=== PATIENT | female | born 1990 | race Two or more races ===

== ENCOUNTER 2016-12-01 08:59 | Emergency (ER) | payer OTHER ==
[2016-12-01 09:15] VITALS: BMI 32.7
--- NOTE | 2016-12-01 09:19 | PDOC ---
History of Present Illness - History of Present Illness Initial Comments: 12/01/16 10:16 Patient is a 26 year old female (8 weeks; ) with significant medical hx of asthma, hypothyroidism, and pre-diabetes who is presenting to the ED with nausea, left sided flank pain, and vomiting since yesterday. The patient is currently being treated for UTI (on Macrobid) that she was diagnosed with last week; she reports associated dysuria and some blood in her urine. Today the patient complains of intermittent left sided flank and LLQ pain that is accompanied with nausea and vomiting that started yesterday. The patient also reports some diarrhea yesterday (now resolved) and headache. The patient reports that she's experienced this pain prior to her , but usually was mild and resolved on its own but states that it was never this bad. Denies fevers, chills, cough, chest pain, or shortness of breath. CLAMPER: Tangela Moore MD <Kristina Owusu - Last Filed: 12/01/16 15:19> <Marshall Franklin - Last Filed: 12/01/16 20:29> - General Chief Complaint: Pain, Acute Stated Complaint: VOMIT (8 WKS ) LT SIDE PAIN Time Seen by Provider: 12/01/16 09:17 Past History <Kristina Owusu - Last Filed: 12/01/16 15:19> - Past Medical History Asthma: Yes Diabetes: (PRE-DIABETIC) - Psycho/Social/Smoking Cessation Hx Suicidal Ideation: No Smoking History: Never smoked Number of Cigarettes Smoked Daily: 0 Hx Alcohol Use: No Drug/Substance Use Hx: No <Marshall Franklin - Last Filed: 12/01/16 20:29> - Past Medical History Allergies/Adverse Reactions: Allergies Allergy/AdvReac Type Severity Reaction Status Date / Time amoxicillin Allergy Verified 12/01/16 09:10 Home Medications: Ambulatory Orders Metoclopramide HCl [Reglan -] 10 mg PO BID PRN 12/01/16 Nitrofurantoin Macrocrystal [Nitrofurantoin] 100 mg PO BID 12/01/16 Review of Systems - Review of Systems Comments:: 12/01/16 10:18 CONSTITUTIONAL: No reported: Fever, Chills, Diaphoresis, Generalized Weakness, Malaise, Loss of Appetite HEENT: No reported: Rhinorrhea, Nasal Congestion, Throat Pain, Throat Swelling, Difficulty Swallowing, Mouth Swelling, Ear Pain, Eye Pain, Visual Changes CARDIOVASCULAR: No reported: Chest Pain, Syncope, Palpitations, Irregular Heart Rate, Lightheadedness, Peripheral Edema RESPIRATORY: No reported: Cough, Shortness of Breath, SOB with Exertion, Orthopnea, Wheezing , Stridor, Hemoptysis GASTROINTESTINAL: Reported: LLQ Pain, Nausea, Vomiting, Diarrhea No reported: Abdominal Distension, Constipation, Melena, Hematochezia GENITOURINARY: Reported: Left Flank Pain, Dysuria, Hematuria No reported: Frequency, Urgency, Hesitancy, Genital Pain MUSCULOSKELETAL: No reported: Myalgia, Arthralgia, Joint Swelling, Back pain, Neck Pain SKIN: No reported: Rash, Itching, Pallor HEMEATOLOGIC/IMMUNOLOGIC: No reported: Easy Bleeding, Easy Bruising, Lymphadenopathy, Frequent infections ENDOCRINE: No reported: Unexplained Weight Gain, Unexplained Weight Loss, Heat Intolerance , Cold Intolerance NEUROLOGIC: Reported: Headache No reported: Focal Weakness, Paresthesias, Vertigo, Lightheadedness, Unsteady Gait, Seizure, Mental Status Changes, Incontinence PSYCHIATRIC: No reported: Anxiety, Depression <Umer,Kristina - Last Filed: 12/01/16 15:19> *Physical Exam - Vital Signs Last Vital Signs Temp Pulse Resp BP Pulse Ox 98.3 F 92 H 19 123/71 100 12/01/16 09:10 12/01/16 09:10 12/01/16 09:10 12/01/16 09:10 12/01/16 09:10 - Physical Exam Comments: 12/01/16 10:19 GENERAL: The patient is awake, alert, and fully oriented, Nontoxic - in no acute distress. HEAD: Normocephalic, atraumatic. EYES: extraocular movements intact, sclera anicteric, conjunctiva clear. ENT: Normal voice, Moist mucous membranes. NECK: Normal range of motion, supple LUNGS: Breath sounds equal, clear to auscultation bilaterally. No wheezes, no rhonchi, no rales. HEART: Regular rate and rhythm, normal S1 and S2 without murmur, rub or gallop. ABDOMEN: Soft, non tender abdomen normoactive bowel sounds. No guarding, no rebound. No CVA tenderness, EXTREMITIES: Normal range of motion, no edema. No clubbing or cyanosis. No cords, erythema, or tenderness. NEUROLOGICAL: No facial assymetry, Normal speech, PSYCH: Normal mood, normal affect. SKIN: Warm, Dry, normal turgor <Kristina Owusu - Last Filed: 12/01/16 15:19> - Vital Signs Last Vital Signs Temp Pulse Resp BP Pulse Ox 98.3 F 92 H 19 123/71 100 12/01/16 09:10 12/01/16 09:10 12/01/16 09:10 12/01/16 09:10 12/01/16 09:10 <Marshall Franklin - Last Filed: 12/01/16 20:29> ED Treatment Course - LABORATORY CBC & Chemistry Diagram: 12/01/16 09:44 12/01/16 09:44 - ADDITIONAL ORDERS Additional order review: Laboratory Results 12/01/16 09:44 Urine Color Ltyellow Urine Appearance Clear Urine pH 5.0 Ur Specific [place] 1.017 Urine Protein Negative Urine Glucose (UA) Negative Urine Ketones Negative Urine Blood 2+ H Urine Nitrite Negative Urine Bilirubin Negative Urine Urobilinogen Negative Ur Leukocyte Esterase 2+ H 12/01/16 09:44 RBC 4.53 MCV 83.9 MCHC 33.2 RDW 13.8 MPV 9.1 Neutrophils % 73.7 D Lymphocytes % 17.8 D Monocytes % 7.1 Eosinophils % 1.0 Basophils % 0.4 - RADIOLOGY Radiograph Interpretation: 12/01/16 15:19 Renal US Pelvic/Bladder US Limited US Impression: Single live intrauterine with estimated gestational age of 8 weeks 5 days. Impression: Unremarkable examination. Both kidneys appear unremarkable without evidence of stones or hydronephrosis. Reported By: Jeremy Person MD <Kristina Owusu - Last Filed: 12/01/16 15:19> - LABORATORY CBC & Chemistry Diagram: 12/01/16 09:44 12/01/16 09:44 <Marshall Franklin - Last Filed: 12/01/16 20:29> Medical Decision Making - Medical Decision Making 12/01/16 09:36 26y F , hypothyroid at approximately 8 weeks gestation presents with intermittent L flank pain x 2 days associated n/v, no f/c, vaginal bleeding, pt was treated with macrobid for a UTI since her doctor found blood in her urine last week. On exam the pt is well appearing, in no distress, mild L flank pain. ?possible kidney stones will ck ua, renal US to r/o hydro, pelvic US to r/o ectopic due to L sided pain 12/01/16 15:00 pt currently not in pain labs reviewed us negative for hydro +iup with nromal fhr cannot definitely r/o or r/in stones, but no signs of obstruction will dc the pt with pmd fu tylenol for pain return precautions were discussed I discussed the physical exam findings, ancillary test results and final diagnoses with the patient. I answered all of the patient's questions. The patient was satisfied with the care received and felt comfortable with the discharge plan and treatment plan. The patient will call their primary care physician within 24 hours to arrange follow-up and will return to the Emergency Department with any new, persistent or worsening symptoms. <Marshall Franklin - Last Filed: 12/01/16 20:29> *DC/Admit/Observation/Transfer - Attestations Scribe Attestion: 12/01/16 10:20 Documentation prepared by Kristina Owusu, acting as medical management specialist for Marshall Franklin MD. <Kristina Owusu - Last Filed: 12/01/16 15:19> - Discharge Dispostion Admit: No <Marshall Franklin - Last Filed: 12/01/16 20:29> Diagnosis at time of Disposition: Flank pain Qualifiers: Weeks of gestation: less than 8 weeks Qualified Code(s): Z3A.01 - Less than 8 weeks gestation of - Discharge Dispostion Disposition: HOME Condition at time of disposition: Improved - Referrals Referrals: Davonte Trujillo MD [Primary Care Provider] - - Patient Instructions Printed Discharge Instructions: DI for -- Discomforts and Remedies, DI for Flank Pain Additional Instructions: Return to the emergency department immediately with ANY new, persistent or worsening symptoms. 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 Results were discussed with you. Please make sure your doctor reviews the results of your emergency evaluation. Print Language: SETSWANA - Post Discharge Activity Work/School Note: Back to Work
[2016-12-01] MEDS ORDERED: METOCLOPRAMIDE HCL INJECTION 10 MG/2 ML VIAL IVPUSH ONE (09:20)
[2016-12-01] MEDS ORDERED: SODIUM CHLORIDE 1,000 ML IV ONE (09:20)
[2016-12-01] MEDS ORDERED: PYRIDOXINE HCL (B-6) 100 MG TABLET PO ONE (09:25)
[2016-12-01 09:55] LABS: URINE APPEARANCE CLEAR; URINE BILIRUBIN NEGATIVE (NEGATIVE); URINE COLOR LTYELLOW; URINE GLUCOSE (UA) NEGATIVE (NEGATIVE); URINE KETONE NEGATIVE (NEGATIVE); URINE NITRITE NEGATIVE (NEGATIVE); URINE PROTEIN NEGATIVE (NEGATIVE); URINE UROBILINOGEN NEGATIVE E.U./dl (0.2-1.0)
[2016-12-01 09:56] LABS: URINE BLOOD 2+ (NEGATIVE); URINE LEUK ESTERASE 2+ (NEGATIVE)
[2016-12-01 10:01] LABS: BASOPHIL 0.4 % (0-2.0); MCH 27.9 pg (25.7-33.7); MCHC 33.2 g/dl (32.0-36.0); MEAN CELL VOLUME 83.9 fl (80-96); MEAN PLT VOLUME 9.1 fl (7.5-11.1); NEUTROPHILS 73.7 % (42.8-82.8); PLATELET COUNT 232 K/MM3 (134-434); RDW 13.8 % (11.6-15.6); WHITE BLOOD COUNT 7.9 K/mm3 (4.0-10.0)
[2016-12-01 10:54] LABS: ALBUMIN 3.3 g/dl (3.4-5.0); ALK PHOS 67 U/L (45-117); ANION GAP 11 (8-16); BILIRUBIN,TOTAL 0.2 mg/dL (0.2-1.0); CALCIUM 8.5 mg/dL (8.5-10.1); CO2 23 mmol/L (21-32); CREATININE 0.4 mg/dL (0.55-1.02); GLUCOSE,RANDOM 78 mg/dL (74-106); SGOT/AST 18 U/L (15-37); SGPT/ALT 21 U/L (12-78); TOT PROT 6.8 g/dl (6.4-8.2)
[2016-12-01 11:15] LABS: URINE MUCUS RARE; URINE RBC 6 /hpf (0-3); URINE WBC 4 /hpf (3-5)
[2016-12-01 15:27] VITALS: BP 117/82; PULSE 73; TEMP 98.6
== END 2016-12-01 15:27 | disposition home or self-care (01) ==
LOC: JER 08:59
PROC: 3E0337Z Introduction of Electrolytic and Water Balance Substance into Peripheral Vein, Percutaneous Approach (ICD-10-PCS; principal; 2016-12-01)
DX: O26.891 Other specified pregnancy related conditions, first trimester (principal); R10.32 Left lower quadrant pain; O99.281 Endocrine, nutritional and metabolic diseases complicating pregnancy, first trimester; E03.8 Other specified hypothyroidism; O24.911 Unspecified diabetes mellitus in pregnancy, first trimester; J45.909 Unspecified asthma, uncomplicated; Z3A.08 8 weeks gestation of pregnancy
CPT/HCPCS: 36415; 76775-TC; 76815-TC; 76856-TC; 80053; 81003; 81015; 84702; 85025; 96360; 99283-25

== ENCOUNTER 2016-12-28 08:36 | Emergency (ER) | payer OTHER ==
[2016-12-28 08:50] VITALS: TEMP 98.4; BMI 32.9
[2016-12-28] MEDS ORDERED: RANITIDINE HCL 150 MG TABLET (FP) PO ONE (09:25)
[2016-12-28] MEDS ORDERED: METOCLOPRAMIDE HCL 10 MG TABLET (FP) PO ONE ×2 (09:25→09:35)
[2016-12-28] MEDS ORDERED: RANITIDINE HCL 150 MG TABLET (FP) ONE (09:35)
[2016-12-28] MEDS ORDERED: SODIUM CHLORIDE 1,000 ML IV STA (09:41)
--- NOTE | 2016-12-28 09:52 | PDOC ---
History of Present Illness - General Chief Complaint: Nausea/Vomiting Stated Complaint: N/V,12 WKS Time Seen by Provider: 12/28/16 09:01 History Source: Patient Exam Limitations: No Limitations - History of Present Illness Initial Comments: 26 yo F 12 weeks presented to the ED with n/v x 2 days. She vomited 3 times, food content, non-bilious. Other symptoms include dizziness, headache, sinus fullness, cough, dark urine, suprapubic pain. 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 She was seen again in November for n/v and given reglan but did not take it this time when she felt nauseated. Denies fever, chills, chest pain, sob, bloody discharge per vagina. Past History - Past Medical History Allergies/Adverse Reactions: Allergies Allergy/AdvReac Type Severity Reaction Status Date / Time amoxicillin Allergy Verified 12/28/16 08:47 Home Medications: Ambulatory Orders Metoclopramide HCl [Reglan] 10 mg PO Q8H #21 tablet 12/28/16 Nitrofurantoin Monohyd/M-Cryst [Macrobid -] 100 mg PO BID #14 capsule 12/28/16 Asthma: Yes Diabetes: (PRE-DIABETIC) - Psycho/Social/Smoking Cessation Hx Suicidal Ideation: No Smoking History: Never smoked Number of Cigarettes Smoked Daily: 0 Hx Alcohol Use: No Drug/Substance Use Hx: No Review of Systems - Review of Systems Able to Perform ROS?: Yes Is the patient limited Yoruba proficient: Yes Constitutional: No: Chills HEENTM: Yes: Ear Pain, Nose Congestion. No: Throat Swelling, Difficulty Swallowing Respiratory: Yes: Cough. No: Shortness of Breath ABD/GI: Yes: Nausea, Vomiting, Abdominal cramping (suprapubic) : Yes: Dysuria *Physical Exam - Vital Signs Last Vital Signs Temp Pulse Resp BP Pulse Ox 98.4 F 89 19 98/65 98 12/28/16 08:47 12/28/16 08:47 12/28/16 08:47 12/28/16 08:47 12/28/16 08:47 - Physical Exam General Appearance: No: Apparent Distress HEENT: negative: Photophobia, Tonsillar Exudate, Tonsillar Erythema, Rhinorrhea , Sinus Tenderness Neck: positive: Other (lymph node tenderness behind ears) Cardiovascular: positive: Regular Rhythm, Regular Rate, S1, S2. negative: Murmur Gastrointestinal/Abdominal: positive: Normal Bowel Sounds, Soft, Tenderness ( suprapubic). negative: Distended, Guarding, Rebound Musculoskeletal: negative: CVA Tenderness ED Treatment Course - LABORATORY CBC & Chemistry Diagram: 12/28/16 09:50 12/28/16 09:50 - RADIOLOGY Radiology Studies Ordered: Category Date Time Status <14WKS US [US] Stat Ultrasound 12/28/16 09:33 Ordered Medical Decision Making - Medical Decision Making 12/28/16 09:53 Will obtain UA, UC, lab works, and U/S on lower abd. *DC/Admit/Observation/Transfer Diagnosis at time of Disposition: Qualifiers: Weeks of gestation: 13 weeks Qualified Code(s): Z3A.13 - 13 weeks gestation of UTI (urinary tract infection) Qualifiers: Urinary tract infection type: site unspecified Hematuria presence: with hematuria Qualified Code(s): N39.0 - Urinary tract infection, site not specified ; R31.9 - Hematuria, unspecified Nausea & vomiting Qualifiers: Vomiting type: unspecified Vomiting Intractability: unspecified Qualified Code( s): R11.2 - Nausea with vomiting, unspecified - Discharge Dispostion Disposition: HOME Condition at time of disposition: Stable Admit: No - Prescriptions Prescriptions: Nitrofurantoin Monohyd/M-Cryst [Macrobid -] 100 mg PO BID #14 capsule Metoclopramide HCl [Reglan] 10 mg PO Q8H #21 tablet - Patient Instructions Printed Discharge Instructions: DI for Urinary Tract Infection (UTI), Managing Symptoms of Additional Instructions: Please follow up with your [employer] doctor as soon as possible and bring all your discharge paperwork to the office. Please take macrobid 100mg twice a day for 7 days for your urinary tract infection. Please take reglan 10mg every 8 hours as needed for nausea and vomiting. Please return to the emergency department or your primary care doctor for worsening or continued symptoms. Print Language: CYMRO
--- NOTE | 2016-12-28 09:52 | PDOC ---
Attending Attestation - Resident Resident Name: AlmSantosh - ED Attending Attestation I have performed the following: I have examined & evaluated the patient, The case was reviewed & discussed with the resident, I agree w/resident's findings & plan, Exceptions are as noted - HPI HPI: 12/28/16 09:47 26 year old female with pmh of migraines, asthma p/w nausea and vomiting. Pt is ~12 wks p/w nausea and vomiting x 2 day. Also reports having dysuria and suprapubic discomfort but no vaginal bleeding. no flank pain. No fevers, chills. States she has been nauseous in the past with her with she had taken reglan for. Pt reports that the nausea and vomiting is causing her migraine to flare up. She feels generally weak and tired with the vomiting. - Physicial Exam PE: 12/28/16 09:48 GENERAL: Awake, alert, and fully oriented, in no acute distress. HEAD: No signs of trauma EYES: PERRLA, EOMI, sclera anicteric, conjunctiva clear ENT: Auricles normal inspection, hearing grossly normal, nares patent, oropharynx clear without exudates. NECK: Normal ROM, supple, no lymphadenopathy, JVD, or masses LUNGS: Breath sounds equal, clear to auscultation bilaterally. No wheezes, and no crackles HEART: Regular rate and rhythm, normal S1 and S2, no murmurs, rubs or gallops ABDOMEN: +suprapubic discomfort elicited on physical exam. Soft, normoactive bowel sounds. No guarding, no rebound. No masses EXTREMITIES: Normal range of motion, no edema. No clubbing or cyanosis. No cords, erythema, or tenderness NEUROLOGICAL: Cranial nerves II through XII grossly intact. Normal speech, normal gait SKIN: Warm, Dry, normal turgor, no rashes or lesions noted. - Medical Decision Making 12/28/16 09:52 Likely hyperemesis gravidarium. Will need to r/o cystitis. Given lower abd discomfort, will also obtain a pelvic ultrasounds. Labs, IVF, symptom control and reassess. 12/28/16 11:36 Ultrasound reviewed: single live IUP with gestational age of 13 wks and 2 days. Simple right ovarian cyst. CBC, BMP 12/28/16 09:50 12/28/16 09:50 CMP Sodium 137 mmol/L (136-145) 12/28/16 09:50 Potassium 3.8 mmol/L (3.5-5.1) 12/28/16 09:50 Chloride 103 mmol/L (98-107) 12/28/16 09:50 Carbon Dioxide 25 mmol/L (21-32) 12/28/16 09:50 Anion Gap 9 (8-16) 12/28/16 09:50 BUN 8 mg/dL (7-18) 12/28/16 09:50 Creatinine 0.5 mg/dL (0.55-1.02) L D 12/28/16 09:50 Creat Clearance w eGFR > 60 (>60) 12/28/16 09:50 Random Glucose 85 mg/dL (74-106) 12/28/16 09:50 Calcium 9.0 mg/dL (8.5-10.1) 12/28/16 09:50 Total Bilirubin 0.3 mg/dL (0.2-1.0) D 12/28/16 09:50 AST 14 U/L (15-37) L D 12/28/16 09:50 ALT 20 U/L (12-78) 12/28/16 09:50 Alkaline Phosphatase 73 U/L (45-117) 12/28/16 09:50 Total Protein 7.4 g/dl (6.4-8.2) 12/28/16 09:50 Albumin 3.5 g/dl (3.4-5.0) 12/28/16 09:50 Urine Test Results Urine Color Yellow 12/28/16 09:28 Urine Appearance Clear 12/28/16 09:28 Urine pH 5.0 (5.0-8.0) 12/28/16 09:28 Ur Specific [place] 1.026 (1.001-1.035) 12/28/16 09:28 Urine Protein Negative (NEGATIVE) 12/28/16 09:28 Urine Glucose (UA) Negative (NEGATIVE) 12/28/16 09:28 Urine Ketones Negative (NEGATIVE) 12/28/16 09:28 Urine Blood 2+ (NEGATIVE) H 12/28/16 09:28 Urine Nitrite Negative (NEGATIVE) 12/28/16 09:28 Urine Bilirubin Negative (NEGATIVE) 12/28/16 09:28 Ur Leukocyte Esterase 1+ (NEGATIVE) H 12/28/16 09:28 Urine RBC 8 /hpf (0-3) 12/28/16 09:28 Urine WBC 4 /hpf (3-5) 12/28/16 09:28 Ur Epithelial Cells Rare /hpf (FEW) 12/28/16 09:28 Urine Bacteria Rare /hpf (NONE SEEN) 12/28/16 09:28 Urine Mucus Many 12/28/16 09:28 The ultrasound is reassuring. Given these circumstances with the UA, will treat as cystitis. Will give macrobid. Discharge diagnosis: hyperemesis gravidarum and cystitis.
[2016-12-28 09:59] LABS: BASOPHIL 0.6 % (0-2.0); EOSINOPHIL 0.9 % (0-4.5); MCH 27.3 pg (25.7-33.7); MCHC 32.5 g/dl (32.0-36.0); MEAN PLT VOLUME 9.4 fl (7.5-11.1); NEUTROPHILS 70.7 % (42.8-82.8); PLATELET COUNT 201 K/MM3 (134-434); RDW 14.2 % (11.6-15.6); WHITE BLOOD COUNT 8.2 K/mm3 (4.0-10.0)
[2016-12-28 10:12] LABS: URINE APPEARANCE CLEAR; URINE BILIRUBIN NEGATIVE (NEGATIVE); URINE COLOR YELLOW; URINE GLUCOSE (UA) NEGATIVE (NEGATIVE); URINE KETONE NEGATIVE (NEGATIVE); URINE NITRITE NEGATIVE (NEGATIVE); URINE PROTEIN NEGATIVE (NEGATIVE); URINE UROBILINOGEN NEGATIVE E.U./dl (0.2-1.0)
[2016-12-28 10:16] LABS: URINE BLOOD 2+ (NEGATIVE)
[2016-12-28 10:17] LABS: URINE LEUK ESTERASE 1+ (NEGATIVE)
[2016-12-28 10:27] LABS: ALBUMIN 3.5 g/dl (3.4-5.0); ALK PHOS 73 U/L (45-117); ANION GAP 9 (8-16); BILIRUBIN,TOTAL 0.3 mg/dL (0.2-1.0); CO2 25 mmol/L (21-32); CREATININE 0.5 mg/dL (0.55-1.02); GLUCOSE,RANDOM 85 mg/dL (74-106); SGOT/AST 14 U/L (15-37); SGPT/ALT 20 U/L (12-78); TOT PROT 7.4 g/dl (6.4-8.2)
[2016-12-28 10:56] LABS: URINE BACTERIA RARE /hpf (NONE SEEN); URINE MUCUS MANY; URINE RBC 8 /hpf (0-3); URINE WBC 4 /hpf (3-5)
[2016-12-28] MEDS ORDERED: NITROFURANTOIN MACROCRYSTAL 50 MG CAPSULE (FP) PO SCH (11:45)
[2016-12-28] MEDS ORDERED: NITROFURANTOIN MACROCRYSTAL 50 MG CAPSULE (FP) ONE (11:52)
[2016-12-28 12:05] VITALS: BP 102/60; PULSE 84
== END 2016-12-28 12:05 | disposition home or self-care (01) ==
LOC: JER 08:36
PROC: 3E0337Z Introduction of Electrolytic and Water Balance Substance into Peripheral Vein, Percutaneous Approach (ICD-10-PCS; principal; 2016-12-28)
DX: O21.0 Mild hyperemesis gravidarum (principal); O23.11 Infections of bladder in pregnancy, first trimester; N30.90 Cystitis, unspecified without hematuria; O34.81 Maternal care for other abnormalities of pelvic organs, first trimester; N83.201 Unspecified ovarian cyst, right side; Z3A.13 13 weeks gestation of pregnancy
CPT/HCPCS: 36415; 76801-TC; 80053; 81003; 81015; 85025; 87086; 96360; 99283-25

== ENCOUNTER 2017-01-13 21:34 | Emergency (ER) | payer OTHER ==
[2017-01-13 22:49] VITALS: BP 116/56; PULSE 106; TEMP 98.1; BMI 32.1
[2017-01-14] MEDS ORDERED: AZITHROMYCIN 250 MG TABLET (FP) PO STA (00:02)
--- NOTE | 2017-01-14 00:03 | PDOC ---
History of Present Illness - General History Source: Patient <Nik Santos - Last Filed: 01/14/17 00:04> - General History Source: Patient Exam Limitations: No Limitations - History of Present Illness Initial Comments: 01/14/17 00:08 The patient is a 26 year old female (15 weeks ) with significant past medical history of asthma on albuterol who presents to the ED for 3 days of cold-like symptoms. Patient reports she developed pain to her throat and upper chest region that is exacerbated with deep inspiration and alleviated with drinking fluids. She reports a dry cough and when she coughs, she endorses chest pain. Patient also reports 1 day of fever (tmax 103), rhinorrhea, and nasal congestion. Denies chest pain or SOB. Took her albuterol multiple times with no relief. She recently finished her course of antibiotics on 3 days ago, which she was prescribed for after she found to have a UTI The patient denies abdominal pain, nausea, vomiting, and diarrhea. Allergies: amoxicillin Social History: No alcohol, tobacco, or drug use reported. Past Surgical History: None reported PCP: Dr. Davonte Trujillo <Evita Carrizales - Last Filed: 01/14/17 00:09> - General Chief Complaint: Cold Symptoms Stated Complaint: CHEST PAIN/15 WKS Time Seen by Provider: 01/13/17 23:56 Past History - Past Medical History Asthma: Yes Diabetes: (PRE-DIABETIC) - Psycho/Social/Smoking Cessation Hx Suicidal Ideation: No Smoking History: Never smoked Have you smoked in the past 12 months: No Number of Cigarettes Smoked Daily: 0 Information on smoking cessation initiated: No Hx Alcohol Use: No Drug/Substance Use Hx: No <Nik Santos - Last Filed: 01/14/17 00:04> <Evita Carrizales - Last Filed: 01/14/17 00:09> - Past Medical History Allergies/Adverse Reactions: Allergies Allergy/AdvReac Type Severity Reaction Status Date / Time amoxicillin Allergy Verified 12/28/16 08:47 Home Medications: Ambulatory Orders Metoclopramide HCl [Reglan] 10 mg PO Q8H #21 tablet 12/28/16 Nitrofurantoin Monohyd/M-Cryst [Macrobid -] 100 mg PO BID #14 capsule 12/28/16 Albuterol 0.083% Nebulizer Brittany [Ventolin 0.083% Nebulizer Soln -] 1 neb NEB Q6H #30 vial 01/14/17 Albuterol Sulfate Inhaler - [Ventolin HFA Inhaler -] 2 inh IH Q6H #1 inh Azithromycin [Zithromax -] 250 mg PO UTDICT #6 tab 01/14/17 Review of Systems - Review of Systems Able to Perform ROS?: Yes Comments:: 01/14/17 00:08 CONSTITUTIONAL: +fever Absent: no chills, no fatigue EYES: Absent: visual changes ENT: +sore throat and pain to the upper chest region, rhinorrhea, nasal congestion Absent: ear pain CARDIOVASCULAR: +palpitations Absent: chest pain RESPIRATORY: +dry cough Absent: no SOB GI: Absent: abdominal pain, no nausea, no vomiting, no constipation, no diarrhea GENITOURINARY: Absent: dysuria, no frequency, no hematuria MUSCULOSKELETAL: Absent: back pain, no arthralgia, no myalgia SKIN: Absent: rash NEURO: Absent: headache <Evita Carrizales - Last Filed: 01/14/17 00:09> *Physical Exam - Vital Signs Last Vital Signs Temp Pulse Resp BP Pulse Ox 98.1 F 106 H 14 116/56 97 01/13/17 22:46 01/13/17 22:46 01/13/17 22:46 01/13/17 22:46 01/13/17 22:46 <Nik Santos - Last Filed: 01/14/17 00:04> - Vital Signs Last Vital Signs Temp Pulse Resp BP Pulse Ox 98.1 F 106 H 14 116/56 97 01/13/17 22:46 01/13/17 22:46 01/13/17 22:46 01/13/17 22:46 01/13/17 22:46 - Physical Exam Comments: 01/14/17 00:08 GENERAL: Well-appearing, well-nourished. No apparent distress. HEENT: Normocephalic, atraumatic. PERRL, EOM intact. CARDIOVASCULAR: Normal S1, S2. Regular rate and rhythm. PULMONARY: Clear to auscultation bilaterally. ABDOMEN: Soft, non-distended, non-tender. EXTREMITIES: Normal ROM in all four extremities. No gross deformities. SKIN: Warm, dry. No rash NEUROLOGICAL: No focal neurological deficits. <Evita Carrizales - Last Filed: 01/14/17 00:09> Medical Decision Making - Medical Decision Making 01/14/17 00:04 Dr. Santos: The scribe's documentation has been prepared under my direction and personally reviewed by me in its entirery. I confirm that the note above accurately reflects all work, treatment, procedures, and medical decision making performed by me. <Nik Santos - Last Filed: 01/14/17 00:04> *DC/Admit/Observation/Transfer - Discharge Dispostion Admit: No <Nik Santos - Last Filed: 01/14/17 00:04> - Attestations Scribe Attestion: 01/14/17 00:09 Documentation prepared by Evita Carrizales, acting as medical service technician for Nik Santos MD/DO. <Evita Carrizales - Last Filed: 01/14/17 00:09> Diagnosis at time of Disposition: Upper respiratory infection Qualifiers: URI type: unspecified URI Qualified Code(s): J06.9 - Acute upper respiratory infection, unspecified Qualifiers: Weeks of gestation: 15 weeks Qualified Code(s): Z3A.15 - 15 weeks gestation of - Discharge Dispostion Disposition: HOME Condition at time of disposition: Stable - Prescriptions Prescriptions: Albuterol 0.083% Nebulizer Brittany [Ventolin 0.083% Nebulizer Soln -] 1 neb NEB Q6H #30 vial Albuterol Sulfate Inhaler - [Ventolin HFA Inhaler -] 2 inh IH Q6H #1 inh Azithromycin [Zithromax -] 250 mg PO UTDICT #6 tab - Referrals Referrals: Davonte Trujillo MD [Primary Care Provider] - - Patient Instructions Printed Discharge Instructions: DI for Viral Upper Respiratory Infection -- Adult
[2017-01-14] MEDS ORDERED: AZITHROMYCIN 250 MG TABLET (FP) ONE (00:08)
== END 2017-01-14 00:19 | disposition home or self-care (01) ==
LOC: JER 21:34
DX: J06.9 Acute upper respiratory infection, unspecified (principal); Z3A.15 15 weeks gestation of pregnancy
CPT/HCPCS: 99281-25

== ENCOUNTER 2020-11-26 13:53 | Emergency (ER) | payer OTHER ==
[2020-11-26 14:01] VITALS: BP 108/59; PULSE 82; TEMP 98.6; BMI 28.1
== END 2020-11-26 15:57 | disposition home or self-care (01) ==
LOC: JCOVINFU 13:53 → JER 13:53
DX: U07.1 COVID-19 (principal); R07.89 Other chest pain
CPT/HCPCS: 71046-TC-FY; 93005; 93010; 99284-25

== ENCOUNTER 2021-05-03 12:49 | Emergency (ER) | payer OTHER ==
[2021-05-03] MEDS ORDERED: KETOROLAC TROMETHAMINE 30 MG/1 ML VIAL IM ONE (13:09)
[2021-05-03] MEDS ORDERED: ACETAMINOPHEN 500 MG TABLET (FP) PO ONE (13:09)
[2021-05-03 13:10] VITALS: BMI 28.5
[2021-05-03] MEDS ORDERED: ACETAMINOPHEN 500 MG TABLET (FP) ONE (13:17)
[2021-05-03] MEDS ORDERED: KETOROLAC TROMETHAMINE 30 MG/1 ML VIAL ONE (13:17)
[2021-05-03 15:05] VITALS: BP 100/56; PULSE 98; TEMP 99
== END 2021-05-03 15:25 | disposition home or self-care (01) ==
LOC: JER 12:49
PROC: 3E0233Z Introduction of Anti-inflammatory into Muscle, Percutaneous Approach (ICD-10-PCS; principal; 2021-05-03)
DX: J02.9 Acute pharyngitis, unspecified (principal); R50.9 Fever, unspecified; M79.10 Myalgia, unspecified site; Z11.52 Encounter for screening for COVID-19
CPT/HCPCS: 87880; 99284-25; C9803; U0003; U0005

== ENCOUNTER 2021-05-03 20:04 | Emergency (ER) | payer OTHER ==
[2021-05-03 20:17] VITALS: BMI 28.5
[2021-05-03] MEDS ORDERED: LACTATED RINGERS SOLUTION 1000 ML INFUS.BAG IV ONE (21:17)
[2021-05-03 22:02] LABS: BASO % 0.4 % (0-2.0); EOS % 0.1 % (0-4.5); HEMATOCRIT 39.2 % (32.4-45.2); HEMOGLOBIN 13.3 GM/dL (10.7-15.3); LYMPH % 5.9 % (8-40); MCH 28.9 pg (25.7-33.7); MCHC 33.9 g/dl (32.0-36.0); MEAN CELL VOLUME 85.4 fl (80-96); MEAN PLT VOLUME 8.4 fl (7.5-11.1); MONO % 4.3 % (3.8-10.2); NEUT % 89.3 % (42.8-82.8); PLATELET COUNT 225 10^3/uL (134-434); RBC 4.59 M/mm3 (3.60-5.2); RDW 14.3 % (11.6-15.6); WHITE BLOOD COUNT 9.8 K/mm3 (4.0-10.0)
[2021-05-03 23:05] LABS: ALBUMIN 3.9 g/dl (3.4-5.0); BLOOD UREA NITROGEN 18.4 mg/dL (7-18); CALCIUM 8.6 mg/dL (8.5-10.1)
[2021-05-03 23:09] LABS: CREATININE 1.1 mg/dL (0.55-1.3)
[2021-05-03 23:10] LABS: BILIRUBIN,TOTAL 0.5 mg/dL (0.2-1); TOT PROT 7.6 g/dl (6.4-8.2)
[2021-05-03] MEDS ORDERED: KETOROLAC TROMETHAMINE 30 MG/1 ML VIAL IVPUSH ONE (23:10)
[2021-05-03] MEDS ORDERED: LACTATED RINGERS SOLUTION 1,000 ML IV STA (23:11)
[2021-05-03 23:14] LABS: HIV INTERPRETATION NEGATIVE (NEGATIVE)
[2021-05-03 23:24] LABS: URINE APPEARANCE CLOUDY; URINE BILIRUBIN SMALL (NEGATIVE); URINE COLOR DK YELLOW; URINE GLUCOSE (UA) NEGATIVE (NEGATIVE); URINE KETONE TRACE (NEGATIVE); URINE PROTEIN 100 (NEGATIVE)
[2021-05-03 23:25] LABS: URINE LEUK ESTERASE NEGATIVE (NEGATIVE); URINE NITRITE NEGATIVE (NEGATIVE)
[2021-05-03] MEDS ORDERED: KETOROLAC TROMETHAMINE 15 MG/ML VIAL ONE (23:26)
[2021-05-03 23:27] LABS: ERYTHROCYTE SEDIMENTATION RATE 13 mm/hr (0-20)
[2021-05-04 00:15] VITALS: PULSE 96
[2021-05-04 01:18] VITALS: BP 102/70; TEMP 98.3
[2021-05-06 17:08] LABS: MUMPS ANTIBODY IGG > 300.0 AU/mL (Immune >10.9)
== END 2021-05-04 01:18 ==
LOC: JER 20:04
PROC: 3E0333Z Introduction of Anti-inflammatory into Peripheral Vein, Percutaneous Approach (ICD-10-PCS; principal; 2021-05-03)
PROC: 3E0337Z Introduction of Electrolytic and Water Balance Substance into Peripheral Vein, Percutaneous Approach (ICD-10-PCS; 2021-05-03)
DX: J02.9 Acute pharyngitis, unspecified (principal); R50.9 Fever, unspecified
CPT/HCPCS: 36415; 70491-TC; 80053; 81003; 84703; 85025; 85651; 86140; 86308; 86735; 87040; 87086; 87389; 87804; 87880; 99284-25; Q9967

== ENCOUNTER 2021-05-06 13:41 | Inpatient (IN) | payer OTHER ==
[2021-05-06] MEDS ORDERED: ACETAMINOPHEN 325 MG TABLET (FP) PO ONE ×2 (14:38→19:51)
[2021-05-06 15:38] LABS: URINE APPEARANCE CLOUDY; URINE BILIRUBIN NEGATIVE (NEGATIVE); URINE COLOR YELLOW; URINE GLUCOSE (UA) NEGATIVE (NEGATIVE); URINE KETONE NEGATIVE (NEGATIVE); URINE LEUK ESTERASE TRACE (NEGATIVE); URINE NITRITE NEGATIVE (NEGATIVE); URINE PROTEIN NEGATIVE (NEGATIVE); URINE UROBILINOGEN 0.2 mg/dL (0.2-1.0)
[2021-05-06] MEDS ORDERED: IBUPROFEN 400 MG TABLET (FP) PO ONE ×2 (15:38→17:49)
[2021-05-06 16:29] LABS: VENOUS BASE EXCESS -0.2 mmol/L (-2-2); VENOUS PCO2 48.8 mmHg (38-52); VENOUS PH 7.345 (7.310-7.410)
[2021-05-06 16:35] LABS: BASO % 0.3 % (0-2.0); EOS % 0.5 % (0-4.5); HEMATOCRIT 35.9 % (32.4-45.2); LYMPH % 11.7 % (8-40); MCH 28.6 pg (25.7-33.7); MCHC 33.5 g/dl (32.0-36.0); MEAN CELL VOLUME 85.2 fl (80-96); MEAN PLT VOLUME 8.6 fl (7.5-11.1); MONO % 4.8 % (3.8-10.2); NEUT % 82.7 % (42.8-82.8); PLATELET COUNT 112 10^3/uL (134-434); RBC 4.21 M/mm3 (3.60-5.2); RDW 14.9 % (11.6-15.6)
[2021-05-06 16:43] LABS: INR 1.12 (0.83-1.09); PROTHROMBIN TIME (PATIENT) 13.5 SEC (9.7-13.0)
[2021-05-06 16:46] LABS: ACTIVATED PTT 27.7 SECONDS (25.2-36.5)
[2021-05-06 16:55] LABS: CHLORIDE 104 mmol/L (98-107); SODIUM 137 mmol/L (136-145)
[2021-05-06 16:58] LABS: ANION GAP 8 MMOL/L (8-16); BLOOD UREA NITROGEN 8.5 mg/dL (7-18); CALCIUM 8.1 mg/dL (8.5-10.1); CO2 25 mmol/L (21-32); GLUCOSE,RANDOM 94 mg/dL (74-106)
[2021-05-06 17:01] LABS: BILIRUBIN,DIRECT 0.4 mg/dL (0.0-0.2); CREATININE 0.7 mg/dL (0.55-1.3); SGOT/AST 96 U/L (15-37); SGPT/ALT 110 U/L (13-61)
[2021-05-06 17:03] LABS: BILIRUBIN,TOTAL 0.7 mg/dL (0.2-1); TOT PROT 6.6 g/dl (6.4-8.2)
[2021-05-06 17:04] LABS: LDH 243 U/L (84-246)
[2021-05-06 17:12] LABS: ALK PHOS 163 U/L (45-117)
[2021-05-06] MEDS ORDERED: ACETAMINOPHEN 325 MG TABLET (FP) ONE (19:55)
[2021-05-06 20:14] LABS: EPI CELLS 0-10 /HPF; URINE BACTERIA FEW /hpf (NEGATIVE)
[2021-05-06 20:15] LABS: HYALINE CASTS 0 /lpf
[2021-05-06 20:16] LABS: URINE RBC 0-5 /hpf (0-4)
[2021-05-07 03:32] VITALS: BMI 30.2
[2021-05-07] MEDS: LACTATED RINGERS SOLUTION 1,000 ML/1,000 ML INFUS.BAG IV SCH (11:28)
[2021-05-07 11:46] LABS: BASO % 0.9 % (0-2.0); EOS % 1.6 % (0-4.5); HEMATOCRIT 35.3 % (32.4-45.2); HEMOGLOBIN 11.8 GM/dL (10.7-15.3); LYMPH % 26.4 % (8-40); MCH 28.6 pg (25.7-33.7); MCHC 33.4 g/dl (32.0-36.0); MEAN CELL VOLUME 85.7 fl (80-96); MEAN PLT VOLUME 8.6 fl (7.5-11.1); NEUT % 61.1 % (42.8-82.8); PLATELET COUNT 106 10^3/uL (134-434); RBC 4.11 M/mm3 (3.60-5.2); RDW 14.8 % (11.6-15.6); WHITE BLOOD COUNT 3.9 K/mm3 (4.0-10.0)
[2021-05-07 11:53] LABS: INR 1.07 (0.83-1.09); PROTHROMBIN TIME (PATIENT) 13.1 SEC (9.7-13.0)
[2021-05-07 11:56] LABS: ACTIVATED PTT 28.9 SECONDS (25.2-36.5)
[2021-05-07 12:11] LABS: ALBUMIN 2.8 g/dl (3.4-5.0); BLOOD UREA NITROGEN 7.6 mg/dL (7-18); CALCIUM 8.5 mg/dL (8.5-10.1); MAGNESIUM 2.1 mg/dL (1.8-2.4)
[2021-05-07 12:15] LABS: CREATININE 0.6 mg/dL (0.55-1.3); PHOSPHOROUS 2.9 mg/dL (2.5-4.9)
[2021-05-07 12:16] LABS: BILIRUBIN,TOTAL 0.3 mg/dL (0.2-1); TOT PROT 6.5 g/dl (6.4-8.2)
[2021-05-07] MEDS: IBUPROFEN 400 MG TABLET (FP) PO PRN (15:08)
[2021-05-07] MEDS ORDERED: PT OWN MED DRAWER 7, Y5N ONE (18:36)
[2021-05-08] MEDS: LACTATED RINGERS SOLUTION 1,000 ML/1,000 ML INFUS.BAG IV SCH ×2 (03:09→17:16)
[2021-05-08 09:15] LABS: HEMATOCRIT 32.6 % (32.4-45.2); MCH 28.7 pg (25.7-33.7); MCHC 33.9 g/dl (32.0-36.0); MEAN CELL VOLUME 84.5 fl (80-96); MEAN PLT VOLUME 7.7 fl (7.5-11.1); PLATELET COUNT 126 10^3/uL (134-434); RBC 3.85 M/mm3 (3.60-5.2); RDW 14.9 % (11.6-15.6); WHITE BLOOD COUNT 2.8 K/mm3 (4.0-10.0)
[2021-05-08 09:38] LABS: CALCIUM 8.4 mg/dL (8.5-10.1)
[2021-05-08 09:39] LABS: ALBUMIN 2.5 g/dl (3.4-5.0); BLOOD UREA NITROGEN 8.5 mg/dL (7-18)
[2021-05-08 09:42] LABS: CREATININE 0.6 mg/dL (0.55-1.3)
[2021-05-08 09:45] LABS: BILIRUBIN,TOTAL 0.3 mg/dL (0.2-1); TOT PROT 5.9 g/dl (6.4-8.2)
[2021-05-08 11:10] LABS: ANISOCYTOSIS 1+; MACROCYTOSIS 0; OVALOCYTE 1+; PLATELET ESTIMATE DECREASED
[2021-05-08] MEDS: IBUPROFEN 400 MG TABLET (FP) PO PRN (23:23)
[2021-05-09 04:07] LABS: CMV IgM < 30.0 AU/mL (0.0-29.9)
[2021-05-09] MEDS: LACTATED RINGERS SOLUTION 1,000 ML/1,000 ML INFUS.BAG IV SCH ×4 (05:51→19:35)
[2021-05-09 08:35] LABS: HEMOGLOBIN 11.2 GM/dL (10.7-15.3); MCH 28.5 pg (25.7-33.7); MCHC 33.9 g/dl (32.0-36.0); MEAN CELL VOLUME 84.1 fl (80-96); MEAN PLT VOLUME 7.7 fl (7.5-11.1); PLATELET COUNT 172 10^3/uL (134-434); RBC 3.93 M/mm3 (3.60-5.2); RDW 14.6 % (11.6-15.6); WHITE BLOOD COUNT 3.3 K/mm3 (4.0-10.0)
[2021-05-09 08:56] LABS: CALCIUM 8.4 mg/dL (8.5-10.1)
[2021-05-09 08:57] LABS: ALBUMIN 2.6 g/dl (3.4-5.0); BLOOD UREA NITROGEN 10.4 mg/dL (7-18)
[2021-05-09 09:00] LABS: CREATININE 0.5 mg/dL (0.55-1.3)
[2021-05-09 09:01] LABS: BILIRUBIN,TOTAL 0.2 mg/dL (0.2-1)
[2021-05-09 12:00] LABS: ANISOCYTOSIS 1+; MACROCYTOSIS 0; OVALOCYTE 1+; PLATELET ESTIMATE NORMAL
[2021-05-09] MEDS: FAMOTIDINE 20 MG TABLET PO SCH (18:44)
[2021-05-10] MEDS: FAMOTIDINE 20 MG TABLET PO SCH (09:12)
[2021-05-10] MEDS: LACTATED RINGERS SOLUTION 1,000 ML/1,000 ML INFUS.BAG IV SCH ×2 (09:19→21:09)
[2021-05-10] MEDS ORDERED: ACETAMINOPHEN 1000 MG/100 ML VIAL (NON FORMULARY) IVPB PRN (09:54)
[2021-05-10 10:35] LABS: HEMATOCRIT 36.2 % (32.4-45.2); HEMOGLOBIN 12.2 GM/dL (10.7-15.3); MCH 28.5 pg (25.7-33.7); MCHC 33.6 g/dl (32.0-36.0); MEAN CELL VOLUME 84.8 fl (80-96); MEAN PLT VOLUME 7.5 fl (7.5-11.1); PLATELET COUNT 241 10^3/uL (134-434); RBC 4.27 M/mm3 (3.60-5.2); RDW 14.7 % (11.6-15.6); WHITE BLOOD COUNT 4.2 K/mm3 (4.0-10.0)
[2021-05-10 10:42] LABS: INR 1.02 (0.83-1.09); PROTHROMBIN TIME (PATIENT) 12.3 SEC (9.7-13.0)
[2021-05-10 11:01] LABS: ALBUMIN 3.1 g/dl (3.4-5.0); BLOOD UREA NITROGEN 11.1 mg/dL (7-18)
[2021-05-10 11:04] LABS: CREATININE 0.6 mg/dL (0.55-1.3)
[2021-05-10 11:06] LABS: BILIRUBIN,TOTAL 0.4 mg/dL (0.2-1)
[2021-05-10 11:07] LABS: ALBUMIN 3.1 g/dl (3.4-5.0)
[2021-05-10 11:10] LABS: BILIRUBIN,DIRECT 0.2 mg/dL (0.0-0.2)
[2021-05-10 11:12] LABS: BILIRUBIN,TOTAL 0.4 mg/dL (0.2-1); TOT PROT 6.9 g/dl (6.4-8.2)
[2021-05-10 11:15] LABS: ANISOCYTOSIS 1+; MACROCYTOSIS 0; PLATELET ESTIMATE NORMAL
[2021-05-11] MEDS: LACTATED RINGERS SOLUTION 1,000 ML/1,000 ML INFUS.BAG IV SCH ×2 (08:55→22:56)
[2021-05-11] MEDS: FAMOTIDINE 20 MG TABLET PO SCH (09:06)
[2021-05-11 10:20] LABS: ALBUMIN 3.3 g/dl (3.4-5.0)
[2021-05-11 10:23] LABS: BILIRUBIN,DIRECT 0.1 mg/dL (0.0-0.2)
[2021-05-11 10:24] LABS: BILIRUBIN,TOTAL 0.4 mg/dL (0.2-1); TOT PROT 7.1 g/dl (6.4-8.2)
[2021-05-11 11:09] LABS: HEMATOCRIT 36.4 % (32.4-45.2); HEMOGLOBIN 12.4 GM/dL (10.7-15.3); MCH 28.7 pg (25.7-33.7); MCHC 34.1 g/dl (32.0-36.0); MEAN CELL VOLUME 84.2 fl (80-96); MEAN PLT VOLUME 7.7 fl (7.5-11.1); PLATELET COUNT 310 10^3/uL (134-434); RBC 4.32 M/mm3 (3.60-5.2); RDW 14.6 % (11.6-15.6); WHITE BLOOD COUNT 6.4 K/mm3 (4.0-10.0)
[2021-05-11 11:12] LABS: BLOOD UREA NITROGEN 11.9 mg/dL (7-18); CALCIUM 8.9 mg/dL (8.5-10.1)
[2021-05-11 11:16] LABS: CREATININE 0.6 mg/dL (0.55-1.3)
[2021-05-11 13:27] LABS: ANISOCYTOSIS 1+; MACROCYTOSIS 0; PLATELET ESTIMATE NORMAL
[2021-05-12 09:18] LABS: HEMATOCRIT 36.7 % (32.4-45.2); HEMOGLOBIN 12.4 GM/dL (10.7-15.3); MCH 28.6 pg (25.7-33.7); MCHC 33.8 g/dl (32.0-36.0); MEAN CELL VOLUME 84.6 fl (80-96); MEAN PLT VOLUME 7.5 fl (7.5-11.1); PLATELET COUNT 363 10^3/uL (134-434); RBC 4.33 M/mm3 (3.60-5.2); RDW 14.7 % (11.6-15.6); WHITE BLOOD COUNT 7.8 K/mm3 (4.0-10.0)
[2021-05-12] MEDS ORDERED: PT OWN MED DRAWER 7, Y5N ONE (09:35)
[2021-05-12 09:49] LABS: CALCIUM 9.2 mg/dL (8.5-10.1)
[2021-05-12 09:50] LABS: ALBUMIN 3.4 g/dl (3.4-5.0); BLOOD UREA NITROGEN 10.6 mg/dL (7-18)
[2021-05-12 09:52] LABS: BILIRUBIN,DIRECT 0.1 mg/dL (0.0-0.2)
[2021-05-12 09:53] LABS: CREATININE 0.6 mg/dL (0.55-1.3)
[2021-05-12 09:54] LABS: BILIRUBIN,TOTAL 0.7 mg/dL (0.2-1); TOT PROT 7.3 g/dl (6.4-8.2)
[2021-05-12] MEDS: LACTATED RINGERS SOLUTION 1,000 ML/1,000 ML INFUS.BAG IV SCH ×2 (09:55→12:55)
[2021-05-12] MEDS: FAMOTIDINE 20 MG TABLET PO SCH (09:55)
[2021-05-12 11:28] LABS: ANISOCYTOSIS 1+; MACROCYTOSIS 0; OVALOCYTE 1+; PLATELET ESTIMATE NORMAL
[2021-05-12 17:07] LABS: WEST NILE VIRUS AB SERUM,IGM Negative (Negative)
[2021-05-12 20:06] LABS: GLIADIN ANTIBODY IGA 2 units (0-19); GLIADIN ANTIBODY IGG 1 units (0-19); TRANSGLUTAMINASE IGG 2 U/mL (0-5)
[2021-05-13] MEDS: LACTATED RINGERS SOLUTION 1,000 ML/1,000 ML INFUS.BAG IV SCH (02:23)
[2021-05-13 09:44] LABS: ALBUMIN 3.3 g/dl (3.4-5.0)
[2021-05-13 09:47] LABS: BILIRUBIN,DIRECT 0.1 mg/dL (0.0-0.2)
[2021-05-13 09:49] LABS: BILIRUBIN,TOTAL 0.5 mg/dL (0.2-1)
[2021-05-13 10:33] VITALS: PULSE 62
[2021-05-13 16:10] LABS: WEST NILE VIRUS AB SERUM,IGM Negative (Negative)
[2021-05-13 18:29] VITALS: BP 101/51; TEMP 98.2
[2021-05-15 11:09] LABS: EPSTEIN BARR ANTIBODY IgM <36.0 U/mL (0.0-35.9)
== END 2021-05-13 19:30 | disposition home or self-care (01) | DRG 723 ==
LOC: JER 13:41 → JERBED 20:18 → J5S 05-07 02:21
PROVIDERS: ADMIT Internal Medicine
DX: B34.9 Viral infection, unspecified (principal); D69.6 Thrombocytopenia, unspecified; K75.2 Nonspecific reactive hepatitis; A08.4 Viral intestinal infection, unspecified; D72.819 Decreased white blood cell count, unspecified; R50.9 Fever, unspecified; R74.01 Elevation of levels of liver transaminase levels; K29.70 Gastritis, unspecified, without bleeding
CPT/HCPCS: 36415; 71275-TC; 76705-TC; 80053; 80076; 80307; 81003; 82248; 82550; 82728; 82784; 82803; 83516; 83550; 83605; 83615; 83735; 84100; 84484; 84703; 85025; 85379; 85610; 85651; 85730; 86038; 86140; 86308; 86480; 86644; 86645; 86664; 86665; 86704; 86705; 86706; 86707; 86708; 86780; 86788; 86789; 86790; 87040; 87045; 87046; 87086; 87177; 87207; 87209; 87340; 87350; 87517; 87522; 87798; 87799; 87804; 93005; 93010; 93970-TC; 99285-25; C9803; Q9967; U0003; U0005

== ENCOUNTER 2022-09-28 10:56 | Emergency (ER) | payer OTHER ==
[2022-09-28 11:12] VITALS: TEMP 98; BMI 31.1
[2022-09-28 14:00] LABS: EOS % 2.7 % (0-4.5); HEMATOCRIT 38.3 % (32.4-45.2); HEMOGLOBIN 12.4 GM/dL (10.7-15.3); LYMPH % 34.3 % (8-40); MCH 27.7 pg (25.7-33.7); MCHC 32.2 g/dl (32.0-36.0); MEAN CELL VOLUME 86.1 fl (80-96); MEAN PLT VOLUME 9.4 fl (7.5-11.1); PLATELET COUNT 278 10^3/uL (134-434); RBC 4.45 M/mm3 (3.60-5.2); RDW 13.5 % (11.6-15.6); WHITE BLOOD COUNT 6.7 K/mm3 (4.0-10.0)
[2022-09-28 14:06] LABS: INR 1.05 (0.83-1.09); PROTHROMBIN TIME (PATIENT) 12.1 SEC (9.7-13.0)
[2022-09-28 14:08] LABS: ACTIVATED PTT 30.5 SECONDS (25.2-36.5)
[2022-09-28 14:25] LABS: ALBUMIN 3.8 g/dl (3.4-5.0); CALCIUM 9.4 mg/dL (8.5-10.1)
[2022-09-28 14:26] LABS: BLOOD UREA NITROGEN 13.6 mg/dL (7-18)
[2022-09-28 14:28] LABS: CREATININE 0.7 mg/dL (0.55-1.3)
[2022-09-28 14:30] LABS: BILIRUBIN,TOTAL 0.3 mg/dL (0.2-1); TOT PROT 7.3 g/dl (6.4-8.2)
[2022-09-28] MEDS ORDERED: SUCRALFATE 1 GM/10 ML UNIT DOSE CUPS PO ONE (15:40)
[2022-09-28] MEDS ORDERED: FAMOTIDINE 10 MG TABLET PO ONE (15:40)
[2022-09-28] MEDS ORDERED: LIDOCAINE VISCOUS 2% ORAL/TOP 15 ML UNIT-DOSE CUP MM ONE (15:40)
[2022-09-28] MEDS ORDERED: FAMOTIDINE 10 MG TABLET ONE (15:47)
[2022-09-28] MEDS ORDERED: SUCRALFATE 1 GM TABLET (FP) ONE (15:47)
[2022-09-28] MEDS ORDERED: LIDOCAINE VISCOUS 2% ORAL/TOP 15 ML UNIT-DOSE CUP ONE (15:47)
[2022-09-28 15:53] LABS: EPI CELLS 7 /uL (0-25.1); HYALINE CASTS 0 /uL (0-3.1); PH,URINE 5.5 (5.0-8.0); URINE APPEARANCE CLEAR; URINE BACTERIA 86 /uL (0-1359); URINE BILIRUBIN NEGATIVE (NEGATIVE); URINE COLOR YELLOW; URINE GLUCOSE (UA) NEGATIVE (NEGATIVE); URINE KETONE NEGATIVE (NEGATIVE); URINE LEUK ESTERASE NEGATIVE (NEGATIVE); URINE NITRITE NEGATIVE (NEGATIVE); URINE PROTEIN NEGATIVE (NEGATIVE); URINE RBC 374 /uL (0-23.9); URINE UROBILINOGEN 0.2 mg/dL (0.2-1.0); URINE WBC 9 /uL (0-25.8)
[2022-09-28 15:56] VITALS: BP 109/65; PULSE 64; RESP 16
== END 2022-09-28 16:03 | disposition home or self-care (01) ==
LOC: JER 10:56
DX: R09.89 Other specified symptoms and signs involving the circulatory and respiratory systems (principal)
CPT/HCPCS: 0241U-QW; 36415; 71046-TC-FY; 71250-TC; 80053; 81003; 83690; 84484; 85025; 85610; 85730; 87086; 99285-25